=== PATIENT | male | born 1965 | race Caucasian/White ===

== ENCOUNTER 2018-11-17 09:22 | Day surgery (SDC) | payer OTHER ==
[2018-11-17 10:37] VITALS: BMI 31.8
--- NOTE | 2018-11-17 11:28 | CP.SDSHP ---
Same Day Surgery H & P - History Proposed Procedure: COLONSCOPY Pre-Op Diagnosis: SEE NOTES - Previous Medical/Surgical History Cardiac: Hypertension, ASHD/CAD Endocrine/Metabolic: Diabetes Misc: Other Pain: 4.Moderate Pain - Allergies Allergies: Allergies No Known Allergies Allergy (Verified 11/17/18 10:35) - Physical Exam General Appearance: N Vital Signs: Vital Signs 11/17/18 10:46 Temperature 98.9 F Pulse Rate 86 Respiratory 20 Rate Blood Pressure 120/85 O2 Sat by Pulse 99 Oximetry Mental Status: Alert & Oriented x3 Neuro: WNL Lungs: Other GI: Other - {Optional Preform as Required} Breast: WNL Abdomen: Other Rectal: Other Integument: WNL : WNL Ortho: WNL ENT: WNL - Impression Pt. Evaluated Today:Candidate for Anesthesia & Procedure: Yes - Date & Time Time: 11:28 Short Stay Discharge - Short Stay Discharge Admitting Diagnosis/Reason for Visit: CHANGE OF BOWEL MOVEMENT Disposition: HOME/ ROUTINE
[2018-11-17] MEDS ORDERED: Propofol 10 mg/ml Inj (20 ML) ONE ×2 (11:34)
[2018-11-17] MEDS ORDERED: Lidocaine Hydrochloride 5 ML INJ ONE (11:34)
[2018-11-17 12:20] VITALS: TEMP 97.1
[2018-11-17] MEDS ORDERED: Belladonna-Phenobarbital PO ONE (12:25)
[2018-11-17 13:19] VITALS: BP 109/80; PULSE 81; RESP 17; O2SAT 100
== END 2018-11-17 13:00 | disposition home or self-care (01) ==
LOC: C.ENDO 09:22
PROVIDERS: ATTEND Specialist
DX: R19.4 Change in bowel habit (principal); R10.84 Generalized abdominal pain; K64.8 Other hemorrhoids; K57.30 Diverticulosis of large intestine without perforation or abscess without bleeding; K58.9 Irritable bowel syndrome, unspecified; I10 Essential (primary) hypertension; E11.9 Type 2 diabetes mellitus without complications; I25.10 Atherosclerotic heart disease of native coronary artery without angina pectoris
CPT/HCPCS: 45380; 82948; 88305; J2704